=== PATIENT | female | born 1960 | race Caucasian/White ===

== ENCOUNTER 2017-12-29 13:07 | Outpatient (CLI) | payer OTHER | END 2017-12-29 13:08 | disposition home or self-care (01) | LOC: BICMAMMO 13:07 | PROVIDERS: ATTEND Internal Medicine Rheumatology | DX: Z13.820 Encounter for screening for osteoporosis (principal); M81.0 Age-related osteoporosis without current pathological fracture; M85.89 Other specified disorders of bone density and structure, multiple sites | CPT/HCPCS: 77080 ==

== ENCOUNTER 2020-01-08 08:00 | Outpatient (CLI) | payer OTHER ==
--- NOTE | 2020-01-08 08:32 | BD ---
DEXA BONE MINERAL DENSITY STUDY: HISTORY: Osteoporosis screening. COMPARISON: None. FINDINGS: Lumbar Spine: BMD (g/cm2) L1 0.698 T-Score: -2.7 -1.3 L2 0.787 T-Score: -2.2 -0.7 L3 0.796 T-Score: -2.6 -1.0 L4 0.864 T-Score: -1.8 -0.2 L1-L4 0.791 T-Score: -2.3 -0.8 Left: Femoral Neck: 0.690 T-Score: -1.4 -0.1 Total Femur: 0.862 T-Score: -1.0 0.0 Right: Femoral Neck: 0.664 T-Score: -1.7 -0.3 Total Femur: 0.849 T-Score: -0.8 0.3 Ten-Year Fracture Risk: Major osteoporotic fracture: 8.3%. Hip fracture: 0.8%. Impression: Osteopenia with elevated fracture risk. POS: [facility]
== END 2020-01-08 08:01 | disposition home or self-care (01) ==
LOC: BICMAMMO 08:00
PROVIDERS: ATTEND Internal Medicine Rheumatology
DX: M81.0 Age-related osteoporosis without current pathological fracture (principal); M85.852 Other specified disorders of bone density and structure, left thigh; M85.851 Other specified disorders of bone density and structure, right thigh
CPT/HCPCS: 77080

== ENCOUNTER 2022-02-05 14:51 | Outpatient (CLI) | payer BC | END 2022-02-05 14:52 | disposition home or self-care (01) | LOC: BICMAMMO 14:51 | PROVIDERS: ATTEND Internal Medicine Rheumatology | DX: M81.0 Age-related osteoporosis without current pathological fracture (principal) | CPT/HCPCS: 77080 ==